=== PATIENT | male | born 1950 | race Caucasian/White ===

== ENCOUNTER → 2016-11-24 | Outpatient (CLI) | payer MEDICARE, OTHER | LOC: HEART 5 08:49 | DX: R06.02 Shortness of breath (principal); F17.200 Nicotine dependence, unspecified, uncomplicated; R94.2 Abnormal results of pulmonary function studies | CPT/HCPCS: 94060; 94729 ==

== ENCOUNTER → 2016-12-08 | Outpatient (CLI) | payer MEDICARE, OTHER | LOC: RAD 12:52 | DX: M54.2 Cervicalgia (principal); M54.5 Low back pain; M47.894 Other spondylosis, thoracic region; M47.892 Other spondylosis, cervical region | CPT/HCPCS: 72050; 72072; 72110 ==

== ENCOUNTER 2020-08-12 23:15 | Emergency (ER) | payer MEDICARE, OTHER ==
[~2020-08-12 23:15] MED LIST: ALBUTEROL2.5 MG/3 M INH; AMLODIPINE BESYL5 MG PO; ANORO ELLIPTA1 EACH INH; ASPIRIN CHEWABL81 MG PO; BACTRIM DS TAB1 EACH PO; CETIRIZINE HCL10 MG PO; CRESTOR10 MG PO; DOXYCYCLINE HY100 M2 PO; DOXYCYCLINE MO100 MG PO; ELIQUIS 2.5 MG2.5 MG PO; IPRAT-ALBUT 0.5-3 ML INH; LORTAB 5-325 M1 EACH PO; NEURONTIN400 MG PO; PERCOCET 10-321 EACH PO; PREDNISONE10 MG PO; PROAIR HFA8.5 GM INH; TENORMIN 50 MG50 MG PO; TESSALON PERLE100 MG PO; VENTOLIN HFA 66.7 GM INH; ZANAFLEX4 MG PO; ZOFRAN4 MG PO
[2020-08-13 00:38] LABS: RED BLOOD COUNT 3.9 M/UL (4.20-5.50); WHITE BLOOD COUNT 14.7 K/UL (4.5-11.0)
[2020-08-13 00:58] LABS: BUN/CREATININE RATIO 20 (0-10)
== END 2020-08-13 13:35 | disposition short-term general hospital (02) ==
LOC: ER1 23:15 → ZEROF 08-13 03:09
PROVIDERS: Physician Assistant
DX: N10 Acute pyelonephritis (principal); G93.40 Encephalopathy, unspecified; Z85.46 Personal history of malignant neoplasm of prostate; Z85.820 Personal history of malignant melanoma of skin; Z85.118 Personal history of other malignant neoplasm of bronchus and lung; J44.9 Chronic obstructive pulmonary disease, unspecified; Z99.81 Dependence on supplemental oxygen; F17.210 Nicotine dependence, cigarettes, uncomplicated; I10 Essential (primary) hypertension; E78.5 Hyperlipidemia, unspecified; R53.81 Other malaise; Z98.890 Other specified postprocedural states; Z88.0 Allergy status to penicillin; Z20.822 Contact with and (suspected) exposure to COVID-19
CPT/HCPCS: 70450; 71045; 73552; 80053; 81001; 82550; 82553; 83874; 84484; 85025; 87077; 87086; 87186; 93005; 94640; 94760; 96365; 96375; 99285; J0696; J1100; U0002

== ENCOUNTER → 2020-10-05 | Outpatient (CLI) | payer MEDICARE, OTHER ==
[~2020-10-05] MED LIST changes: +IBUPROFEN800 MG PO; +LEVOFLOXACIN500 MG PO
== END ==
LOC: KOH-I 09:43
DX: C34.31 Malignant neoplasm of lower lobe, right bronchus or lung (principal); R91.1 Solitary pulmonary nodule
CPT/HCPCS: 71250

== ENCOUNTER 2020-12-18 18:39 | Inpatient (IN) | payer MEDICARE, OTHER ==
[~2020-12-18] VITALS: Ht 180.3 cm; Wt 57.6 kg
[~2020-12-18 18:39] MED LIST changes: -IBUPROFEN800 MG PO; -LEVOFLOXACIN500 MG PO
[2020-12-18 20:12] LABS: HEMOGLOBIN 12.3 gm/dl (14.0-17.5); RED BLOOD COUNT 3.83 M/UL (4.20-5.50); WHITE BLOOD COUNT 20.9 K/UL (4.5-11.0)
[2020-12-18 20:29] LABS: BUN/CREATININE RATIO 53 (0-10)
[2020-12-19] MEDS ORDERED: IBUPROFEN800 MG PO (01:20)
[2020-12-19 07:40] LABS: HEMOGLOBIN 11.4 gm/dl (14.0-17.5); RED BLOOD COUNT 3.73 M/UL (4.20-5.50); WHITE BLOOD COUNT 22.7 K/UL (4.5-11.0)
[2020-12-19 07:57] LABS: BUN/CREATININE RATIO 58 (0-10)
[2020-12-20 02:10] LABS: HEMOGLOBIN 10.8 gm/dl (14.0-17.5); RED BLOOD COUNT 3.59 M/UL (4.20-5.50); WHITE BLOOD COUNT 20.4 K/UL (4.5-11.0)
[2020-12-20 02:36] LABS: BUN/CREATININE RATIO 78 (0-10)
[2020-12-21 04:07] LABS: HEMOGLOBIN 11.4 gm/dl (14.0-17.5); RED BLOOD COUNT 3.6 M/UL (4.20-5.50); WHITE BLOOD COUNT 16.9 K/UL (4.5-11.0)
[2020-12-21 04:25] LABS: BUN/CREATININE RATIO 66 (0-10)
[2020-12-22 04:29] LABS: HEMOGLOBIN 11.3 gm/dl (14.0-17.5); RED BLOOD COUNT 3.58 M/UL (4.20-5.50)
[2020-12-22 04:48] LABS: WHITE BLOOD COUNT 8.9 K/UL (4.5-11.0)
[2020-12-22 05:03] LABS: BUN/CREATININE RATIO 68 (0-10)
[2020-12-23 04:11] LABS: BUN/CREATININE RATIO 76 (0-10)
[2020-12-23 08:00] LABS: BORDETELLA PARAPERTUSSIS Not Detected (Not Detectd); BORDETELLA PERTUSSIS Not Detected (Not Detectd); CHLAMYDIA PNEUMONIAE Not Detected (Not Detectd); CORONAVIRUS HKU1 Not Detected (Not Detectd); CORONAVIRUS NL63 Not Detected (Not Detectd); CORONAVIRUS OC43 Not Detected (Not Detectd); CORONOAVIRUS 229E Not Detected (Not Detectd); HUMAN METAPNEUMOVIRUS Not Detected (Not Detectd); HUMAN RHINOVIRUS/ENTEROVIRUS Not Detected (Not Detectd); INFLUENZA A Not Detected (Not Detectd); INFLUENZA B Not Detected (Not Detectd); MYCOPLASMA PNEUMONIAE Not Detected (Not Detectd); PARAINFLUENZA VIRUS 1 Not Detected (Not Detectd); PARAINFLUENZA VIRUS 2 Not Detected (Not Detectd); PARAINFLUENZA VIRUS 3 Not Detected (Not Detectd); PARAINFLUENZA VIRUS 4 Not Detected (Not Detectd); RESPIRATORY SYNCYTIAL VIRUS Not Detected (Not Detectd)
[2020-12-23 09:01] LABS: SARS-CoV-2 NOT DETECTED (Not Detectd)
--- NOTE | 2020-12-23 12:05 | NUR ---
WENT INTO ROOM PT CALLED OUT SMOTHERING AND RT HAD A BREATHING TREATMENT GOING AND HAD UNHOOKED HIS 02 PT WAS ON RM AIR AND SATS WAS 85 NOTED , HOOKED HIM BACK UP TI JESSY FLOW BUT HE STILL FELT LIKE SOMTHERING SO RT PUT AIRVO BACK ON HIM BUT WHEN I WENT BACK IN ROOM TO CHECK ON HIM HE SAID HE NEEDED TO GO BACK ON BIPAP, SO I PUT BIPAP BACK ON PT SATS COME UP FROM 91 TO 93 , FIO2 AT 40 % ON FI02, WILL CONTINE TO MONITOR CLOSELY
[2020-12-24] MEDS ORDERED: LEVOFLOXACIN500 MG PO (14:41)
== END 2020-12-24 17:18 | DRG 193 ==
LOC: ER1 18:39 → PROG CARE 22:59 → CDU 22:59 → PROG CARE 12-19 01:28 → MED SURG 4 12-22 12:09
PROVIDERS: Internal Medicine; Internal Medicine Infectious Disease; Physician Assistant; ADMIT Internal Medicine
PROC: 5A09457 Assistance with Respiratory Ventilation, 24-96 Consecutive Hours, Continuous Positive Airway Pressure (ICD-10-PCS; principal; 2020-12-18)
DX: J18.9 Pneumonia, unspecified organism (principal); J96.21 Acute and chronic respiratory failure with hypoxia; J96.22 Acute and chronic respiratory failure with hypercapnia; J44.1 Chronic obstructive pulmonary disease with (acute) exacerbation; J44.0 Chronic obstructive pulmonary disease with (acute) lower respiratory infection; E78.5 Hyperlipidemia, unspecified; Z66 Do not resuscitate; I10 Essential (primary) hypertension; R53.81 Other malaise; J30.2 Other seasonal allergic rhinitis; Z96.641 Presence of right artificial hip joint; D72.829 Elevated white blood cell count, unspecified; D53.9 Nutritional anemia, unspecified; Z20.822 Contact with and (suspected) exposure to COVID-19; Z90.79 Acquired absence of other genital organ(s); Z80.9 Family history of malignant neoplasm, unspecified; Z85.118 Personal history of other malignant neoplasm of bronchus and lung; Z85.841 Personal history of malignant neoplasm of brain; Z85.46 Personal history of malignant neoplasm of prostate; Z90.49 Acquired absence of other specified parts of digestive tract; Z88.0 Allergy status to penicillin; Z82.49 Family history of ischemic heart disease and other diseases of the circulatory system; Z83.3 Family history of diabetes mellitus; Z99.81 Dependence on supplemental oxygen; Z72.0 Tobacco use; Z87.440 Personal history of urinary (tract) infections
CPT/HCPCS: 36415; 36600; 71045; 71046; 80048; 80053; 80202; 81001; 82550; 82553; 82803; 83605; 83874; 83880; 84484; 85025; 85610; 87040; 87070; 87077; 87086; 87186; 87205; 87633; 93005; 94640; 94660; 94664; 94760; 97161; 97165; 99285; J0456; J0692; J1650; J2270; J2920; J2930; J3370; J7030; J7070; Q9967; U0002

== ENCOUNTER → 2021-01-20 | Outpatient (CLI) | payer MEDICARE, OTHER ==
[~2021-01-20] MED LIST changes: +IBUPROFEN800 MG PO; +LEVOFLOXACIN500 MG PO
== END ==
LOC: KOH-I 09:00
DX: C34.11 Malignant neoplasm of upper lobe, right bronchus or lung (principal)
CPT/HCPCS: 70450

== ENCOUNTER → 2021-03-26 | Outpatient (CLI) | payer MEDICARE, OTHER | LOC: CT 09:40 | DX: C34.31 Malignant neoplasm of lower lobe, right bronchus or lung (principal) | CPT/HCPCS: 36415; 70470; 82565; 84520; Q9967 ==